=== PATIENT | male | born 1995 | race Caucasian/White ===

== ENCOUNTER → 2024-04-25 14:18 | Outpatient (REF) | payer SELFPAY | LOC: RAD 14:18 | PROVIDERS: ATTENDING PHYSICIAN Physician Assistant Medical; FAMILY PHYSICIAN Family Medicine | DX: R76.11 Nonspecific reaction to tuberculin skin test without active tuberculosis (principal) | CPT/HCPCS: 71046 ==

== ENCOUNTER 2024-05-21 23:29 | Emergency (ER) | payer SELFPAY ==
[2024-05-21 23:32] VITALS: BP 105/74
--- NOTE | 2024-05-22 02:00 | ED.GENMED ---
History of Present Illness
<ADRIANA Padron - Last Filed: 05/22/24 04:43>
General
Chief Complaint: Back Pain
Source: patient and significant other
Exam Limitations: none
Time Seen by Provider: 05/22/24 01:40
Nursing documentation reviewed up to this point in time: agreed with
History of Present Illness
History of Present Illness:
Patient is a 29yo M w/ PMH of L5 herniated disc presents to the ED complaining of severe back pain x5hrs. Reports pain began after he bent down to pick something up, started to walk around the bed, and felt severe pain. He immediately tried doing
stretches from PT which made pain worse and he was not able to stand back up. Pt was able to get up w/ help of but continues to have trouble moving due to pain. He took 40mg prednisone and Tylenol w/o relief. Pain is worse when standing/sitting
up straight. Reports pain is constant and rates 9/10. States it is worse that original injury. Pain radiates down L leg. Reports associated occasional tingling down L leg to knee. Notes herniated disc was fine until he hurt back lifting a box a few
weeks ago. Reports pain then was mild and R>L. Getting over URI. Most recent imaging 2020.
Past History
<ADRIANA Padron - Last Filed: 05/22/24 04:43>
Social History
Tobacco: Non-smoker
Personal: Single
Living: with family
Employment: Employed
Review of Systems
<ADRIANA Padron - Last Filed: 05/22/24 04:43>
Review of Systems
Constitutional: Denies fever, fatigue or chills
EENT: Reports sore throat and runny nose
Respiratory: Reports cough; Denies trouble breathing
Cardiac: Denies chest pain or palpitations
ABD/GI: Denies abdominal pain, nausea, vomiting, diarrhea or constipated
: Denies dysuria or incontinence
Musculoskeletal: Reports back pain
Neurological: Reports weakness and numbness; Denies dizzy or headache
Phy Exam
<ADRIANA Padron - Last Filed: 05/22/24 04:43>
General Physical Exam
General Presentation: moderate distress
General age: appears stated age
General Skin: warm and dry
General Habitus: normal
General Mental: alert
Eye Exam
Eye Exam: PERRL
Cardiovascular Exam
Cardiovascular Exam: regular rate/rhythm, no edema, no gallop and no murmur
Pulmonary Exam
Pulmonary Exam: lungs clear, no respiratory distress, no rales, no crackles, no rhonchi and no wheezing
Neurological Exam
Neurological Exam: alert, oriented x3, no motor deficits, no sensory deficits and speech normal
Motor
Right lower extremity: 5
Left lower extremity: 5
Musculoskeletal Exam
Musculoskeletal Exam: full ROM and back pain (w/ extension of both L & R legs )
Course
<Maria Antonia Gee [facility] - Last Filed: 05/22/24 04:43>
Orders/Labs/Results
Orders:
Orders
05/22/24 02:29
Diazepam [Valium] 5 mg PO NOW STA
Ketorolac [Toradol] 60 mg IM NOW STA
Vital Signs
Initial and Last Documented VS:
Initial Vital Signs
Temp Pulse Resp BP Pulse Ox
98.6 F 86 24 105/74 100
05/21/24 23:32 05/21/24 23:32 05/21/24 23:32 05/21/24 23:32 05/21/24 23:32
Last Documented Vital Signs
Temp Pulse Resp BP Pulse Ox
98.6 F 84 18 139/92 97
05/21/24 23:32 05/22/24 03:22 05/22/24 03:22 05/22/24 03:22 05/22/24 03:22
<Wendy Swain DO - Last Filed: 05/22/24 04:08>
Orders/Labs/Results
Orders:
Orders
05/22/24 02:29
Diazepam [Valium] 5 mg PO NOW STA
Ketorolac [Toradol] 60 mg IM NOW STA
Vital Signs
Initial and Last Documented VS:
Initial Vital Signs
Temp Pulse Resp BP Pulse Ox
98.6 F 86 24 105/74 100
05/21/24 23:32 05/21/24 23:32 05/21/24 23:32 05/21/24 23:32 05/21/24 23:32
Last Documented Vital Signs
Temp Pulse Resp BP Pulse Ox
98.6 F 84 18 139/92 97
05/21/24 23:32 05/22/24 03:22 05/22/24 03:22 05/22/24 03:22 05/22/24 03:22
<ADRIANA Padron - Last Filed: 05/22/24 04:43>
MDM/Problems Addressed
Differential Diagnosis Includes:
herniated disc exacerbation, lumbar strain, lumbar radiculopathy
<ADRIANA Padron - Last Filed: 05/22/24 04:43>
*Critical Care Note
Total Time (30-74mins, 75-104mins- exclusive of procedures): Not Applicable
<Wendy Swain DO - Last Filed: 05/22/24 04:08>
*Pulse Oximetry
Patient hypoxic: no
<ADRIANA Padron - Last Filed: 05/22/24 04:43>
Update Note
Update Note:
05/22/24 4:13 am - Pain has significantly improved. Pt able to sit up, get out of bed, and walk w/ minimal pain.
ED Attending Note
<ADRIANA Padron - Last Filed: 05/22/24 04:43>
-
Portions of this chart may have been created with voice recognition software.� Occasional wrong word or��sound alike� substitutions may have occurred due to the inherent limitations of voice recognition software.
<Wendy Swain DO - Last Filed: 05/22/24 04:08>
ED Attending Note
Patient seen and examined by attending physician: Yes
I performed the substantive portion of visit, reviewed & personally made and approve the management plan that is documented in note by myself or MALLORIE.: Yes
ED Attending Note:
This is a 29-year-old gentleman who has history of lumbar disc disease L5-S1 with previous exacerbations of low back pain requiring physical therapy evaluation, orthopedics evaluation and has undergone previous epidural steroid injections 2018 as
well as 3 to 4 years ago.
He noted mild low back pain a few weeks ago but then tonight after bending over and then walking a few steps he developed abrupt onset of moderate to severe left low back pain that radiates down his left posterior leg. He has attempted to stretch
his back out and has taken a dose of Tylenol as well as 40 mg of prednisone. Continues with significant low back pain radiating down his left posterior leg. He denies abdominal pain, no weakness nor numbness, no saddle anesthesia, no difficulty
moving his bowels or bladder.
He does work in a preschool, bending, lifting etc. he is concerned that he will not be able to return to work this week due to acute back pain.
GENERAL: 29-year-old overweight gentleman appears his stated age. Lying supine on stretcher, bright and alert, pleasant, appears in no acute distress.
EYE: anicteric
NECK: Supple, nontender, no meningismus, no significant adenopathy.
ENT: , oral mucosa is moist. No rhinorrhea.
CARDIAC: Regular rate and rhythm. no murmur.
LUNGS: Clear breath sounds bilaterally, no acute respiratory distress, no wheezes/rales/rhonchi
ABDOMEN: Soft, nondistended, without focal tenderness, no r/g, no cvat. normoactive BS.
BACK: No midline bony tenderness. Straight leg raising minimally positive on the left.
NEUROLOGICAL: Alert and oriented x3, no focal neuro deficits. Motor strength is 5/5 bilaterally. Gross sensation is intact.
SKIN: Warm and dry, normal color, skin intact. No rash.
MUSCULOSKELETAL: No C/C/E. peripheral pulses are full and equal b/l. No palpable tenderness.
PSYCH: Normal and appropriate interaction.
Patient presents with acute left low back pain radiating down his left leg consistent with acute sciatica. He has known history of L5-S1 disc disease and I suspect exacerbation of this.
He has not suffered a fall nor direct trauma. No red flags in history nor exam. No indication for acute imaging.
Will give an IM dose of Toradol and an oral dose of Valium.
Will plan to initiate a course of diclofenac twice daily as well as a short course of Flexeril for bedtime use.
Recommend ice for the first 24 to 48 hours, then transition to heat.
Prompt follow-up with PCP for recheck.
Discharge Plan
Departure
Patient Disposition: Home (Routine Discharge)
Date of Disposition: 05/22/24
Time of Disposition: 04:04
Patient with high blood pressure during this ER visit?: No
Condition: Good
Discharge Problem:
Acute low back pain with left-sided sciatica
Instructions: Low Back Pain (DC), Sciatica (DC)
Prescriptions:
New
cyclobenzaprine 10 mg tablet
10 mg PO TIDPRN PRN (Reason: muscle spasm) Qty: 20 0RF
diclofenac sodium 75 mg tablet,delayed release (DR/EC)
75 mg PO BID PRN (Reason: pain) Qty: 30 0RF
No Action
acetaminophen-codeine 1 TABLET tablet
1 - 2 tab PO Q4HPRN PRN (Reason: prn for pain) Qty: 20 0RF
Referrals:
Yuan Ramirez MD [Family Provider] - Call in 1-3 days for appt
Stand Alone Forms: Return to Work
Interventions
Interventions:
*Risk Screen - Suicide Last Done: 05/21/24 23:32
*General Assessment Last Done: 05/22/24 03:23
*Neglect/Abuse Screening Last Done: 05/21/24 23:32
ED- Fall Risk Assessment Last Done: 05/22/24 03:23
*ED COVID-19 Vaccine History Last Done: 05/22/24 03:23
*Nursing Disposition Last Done: 05/22/24 04:18
ED-Musculoskeletal Assessment Last Done: 05/22/24 03:34
Discharge Date and Time
Discharge Date/Time: 05/22/24 04:19
Print Language: FAROESE
[2024-05-22] MEDS: TORADOL 60 MG IM (03:16)
[2024-05-22] MEDS: VALIUM 5 MG PO (03:16)
[2024-05-22 03:22] VITALS: BP 139/92
== END 2024-05-22 04:19 | disposition home or self-care (01) ==
LOC: EMR 23:29
PROVIDERS: EMERGENCY PHYSICIAN Emergency Medicine; FAMILY PHYSICIAN Family Medicine
DX: M54.42 Lumbago with sciatica, left side (principal); R20.0 Anesthesia of skin; M51.26 Other intervertebral disc displacement, lumbar region; R20.2 Paresthesia of skin; F32.A Depression, unspecified; M10.9 Gout, unspecified
CPT/HCPCS: 99284; 96372

== ENCOUNTER 2025-02-25 16:02 | Emergency (ER) | payer OTHER, SELFPAY ==
[2025-02-25 16:08] VITALS: BP 131/93
[2025-02-25 17:03] LABS: Hematocrit 45.1 % (39.0-52.0); Hemoglobin 15.3 g/dL (13.0-18.0); Mean Corp Hgb Conc. 33.9 g/dL (33.0-37.0); Mean Corpuscular Volume 84.8 fL (80.0-94.0); Nucleated Red Blood Cells % 0 % (-); Platelet Count 252 10^3/uL (130-400); Red Cell Dist. Width 13.2 % (11.5-14.5)
[2025-02-25 17:28] LABS: Troponin I < 0.012 ng/ml
[2025-02-25 17:32] LABS: ALT (SGPT) 37 U/L (0-50); AST (SGOT) 26 U/L (17-59); Albumin 5.2 g/dl (3.5-5.0); Alkaline Phosphatase 62 U/L (38-126); Blood Urea Nitrogen 16 mg/dl (9-20); Calcium 10.1 mg/dl (8.4-10.2); Carbon Dioxide 24 mmol/L (22-30); Chloride 108 mmol/L (98-107); Glucose 84 mg/dl (70-99); Potassium 4.9 mmol/L (3.5-5.1); Sodium 142 mmol/L (135-145); Total Protein 7.8 g/dl (6.3-8.2); eGFR > 60.00
[2025-02-25 18:59] VITALS: BP 117/82
--- NOTE | 2025-02-25 19:55 | ED.GENMED ---
History of Present Illness
General
Chief Complaint: Chest Pain
Source: patient
Time Seen by Provider: 02/25/25 19:54
History of Present Illness
History of Present Illness:
30-year-old male presents to the emergency room complaining of chest pain. Pain is located in the anterior chest. It is been coming intermittently for the past 4 to 5 days. Typically occurs at rest or while he is laying flat. Today it occurred
while he was driving home from [employer] When he has episodes last for about 15 to 30 minutes. It is a sharp pain. Nothing seems to make it better or worse. He denies any associate diaphoresis or nausea. He has no difficulty with exertion
and is able to do all of his normal activities that he wants to do. No change in activity or performance of unusual activity. No recent periods of immobilization. No abdominal pain.
Past History
Social History
Tobacco: Non-smoker
Personal: Single
Living: with family
Employment: Employed
Phy Exam
Physical Exam
Physical Exam:
General: Awake, Alert, Oriented X3. No acute distress.
Vitals: unremarkable
Head: Atraumatic
Eyes: Pupils equal, EOMI
Throat: Airway intact, no exudates
Neck: Trachea midline
Lungs: Clear and equal b/l
Heart: Regular rate, no murmurs
Abd: Soft, Nontender, No pulsatile mass
Neuro: Nonfocal
Skin: Warm, dry, no rash
Extremities: pulses equal b/l, no edema
Scores
Heart Score for Chest Pain Patients
STEMI patient?: No
History: Slightly or Non-Suspicious
ECG: Normal
Age: </= 45 years
Risk Factors: No Risk Factors
Troponin: </= Normal Limit
Heart Score for Chest Pain Patients: 0
Heart Score Risk: 2.5% MACE over next 6 weeks
Course
Orders/Labs/Results
Orders:
Orders
02/25/25 16:03
Electrocardiogram (*1) Urgent
Reason for Study: Chest Pain
EKG- Treatment ONCE
02/25/25 16:13
Electrocardiogram (*1) Urgent
Reason for Study: Chest Pain
EKG- Treatment ONCE
02/25/25 16:17
Complete Blood Count/With Diff Urgent
Comprehensive Metabolic Panel Urgent
Troponin I Urgent
02/25/25 20:08
CR Chest - 2 Views Urgent
Comment:
Reason For Exam: chest pain
02/25/25 20:40
Troponin I Urgent
Abnormal Lab Results
02/25/25
16:17
MPV 11.1 H fL
(7.4-10.4)
Absolute Monos (auto) 0.7 H 10^3/uL
(0.1-0.6)
Chloride 108 H mmol/L
(98-107)
Albumin 5.2 H g/dl
(3.5-5.0)
02/25/25 16:17
02/25/25 16:17
Vital Signs
Initial and Last Documented VS:
Initial Vital Signs
Temp Pulse Resp BP Pulse Ox
98.5 F 93 20 131/93 98
02/25/25 16:08 02/25/25 16:08 02/25/25 16:08 02/25/25 16:08 02/25/25 16:08
Last Documented Vital Signs
Temp Pulse Resp BP Pulse Ox
98.6 F 68 17 117/82 90
02/25/25 18:59 02/25/25 18:59 02/25/25 21:17 02/25/25 18:59 02/25/25 19:56
MDM/Problems Addressed
Differential Diagnosis Includes:
Chest wall pain, costochondritis, GERD, ACS
MDM/Problems Addressed:
Patient presents with chest pain that has been intermittent but present for 5 days. There is no exertional component to the chest pain and overall it seems quite atypical for cardiac pain. Chest x-ray shows no acute abnormality. Labs are
unremarkable. Perhaps the patient has GERD. He does have a history of anxiety and so this may contribute to his chest pain but certainly there is no evidence of an unstable process. Patient stable for discharge home and follow-up with his primary
care provider.
*Radiology
Radiology exam reviewed: preliminary read by ED provider (No acute abnormality)
*Pulse Oximetry
SaO2: 99
Oxygen Mode of Delivery: Room air
Patient hypoxic: no
*EKG
Interpreted by ED Provider?: Yes
Heart Rate: 91
Rate: normal
Rhythm: sinus
Shelby: normal axis
Interval: normal interval
QRS Pattern: normal QRS
Ischemia: no ischemia
*Research Professional Interpretation
Rate: normal
Interpretation: normal
Rhythm: sinus
*Critical Care Note
Total Time (30-74mins, 75-104mins- exclusive of procedures): Not Applicable
ED Attending Note
-
Portions of this chart may have been created with voice recognition software.� Occasional wrong word or��sound alike� substitutions may have occurred due to the inherent limitations of voice recognition software.
Discharge Plan
Departure
Patient Disposition: Home (Routine Discharge)
Date of Disposition: 02/25/25
Time of Disposition: 21:38
Patient with high blood pressure during this ER visit?: No
Condition: Good
Discharge Problem:
Chest pain
Instructions: Chest Pain PCP Follow Up
Prescriptions:
No Action
acetaminophen-codeine 1 TABLET tablet
1 - 2 tab PO Q4HPRN PRN (Reason: prn for pain) Qty: 20 0RF
cyclobenzaprine 10 mg tablet
10 mg PO TIDPRN PRN (Reason: muscle spasm) Qty: 20 0RF
diclofenac sodium 75 mg tablet,delayed release (DR/EC)
75 mg PO BID PRN (Reason: pain) Qty: 30 0RF
Referrals:
Yuan Ramirez MD [Family Provider, Family Practice]
Activity Restrictions/Additional Instructions:
All testing here was unremarkable. There is nothing to suggest a serious cause to your chest pain. Follow up with your primary care provider.
Interventions
Interventions:
*Risk Screen - Suicide Last Done: 02/25/25 16:08
*General Assessment Last Done: 02/25/25 16:08
*Neglect/Abuse Screening Last Done: 02/25/25 16:08
*Nursing Disposition Last Done: 02/25/25 21:54
ED- Cardiac Assessment Last Done: 02/25/25 21:17
Discharge Date and Time
Discharge Date/Time: 02/25/25 21:54
Print Language: UPPER SORBIAN
[2025-02-25 21:10] LABS: Troponin I < 0.012 ng/ml
== END 2025-02-25 21:54 | disposition home or self-care (01) ==
LOC: EMR 16:02
PROVIDERS: Student in an Organized Health Care Education/Training Program; EMERGENCY PHYSICIAN Emergency Medicine; FAMILY PHYSICIAN Family Medicine
DX: R07.9 Chest pain, unspecified (principal)
CPT/HCPCS: 99285; 71046; 80053; 84484; 85025; 93005

== ENCOUNTER → 2025-03-14 07:12 | Outpatient (REF) | payer OTHER, SELFPAY | LOC: HWRCS 07:12 | PROVIDERS: ATTENDING PHYSICIAN Physician Assistant Medical | DX: R07.89 Other chest pain (principal) | CPT/HCPCS: 93306 ==

== ENCOUNTER → 2025-05-03 13:48 | Outpatient (REF) | payer OTHER, SELFPAY | LOC: DHSLP 13:48 | PROVIDERS: ATTENDING PHYSICIAN Physician Assistant Medical | DX: G47.33 Obstructive sleep apnea (adult) (pediatric) (principal) | CPT/HCPCS: 95800 ==